=== PATIENT | female | born 1935 | race Caucasian/White ===

== ENCOUNTER → 2016-10-26 | Outpatient (CLI) | payer OTHER, MEDICARE ==
[~2016-10-26] MED LIST: IOPAMIDOL (ISOVUE-M 300) 15 ML VIAL IV ONE; LIDO/EPI 1% **Not for Epidural 20 ML MDV ONE; LIDOCAINE 1% 30 ML SDV ONE; NA BICARBONATE 50 MEQ/50 ML VIAL ONE
== END ==
LOC: FIMAGING 08:46
PROVIDERS: ATTEND Neurological Surgery
PROC: 3E0R3KZ Introduction of Other Diagnostic Substance into Spinal Canal, Percutaneous Approach (ICD-10-PCS; principal; 2016-10-26)
DX: M51.86 Other intervertebral disc disorders, lumbar region (principal); G58.8 Other specified mononeuropathies; M51.36 Other intervertebral disc degeneration, lumbar region; M51.84 Other intervertebral disc disorders, thoracic region; M48.02 Spinal stenosis, cervical region; M46.96 Unspecified inflammatory spondylopathy, lumbar region; M46.92 Unspecified inflammatory spondylopathy, cervical region; Z01.812 Encounter for preprocedural laboratory examination
CPT/HCPCS: 62305; 72126; 72132; 72270; Q9967